=== PATIENT | male | born 2000 | race Caucasian/White ===

== ENCOUNTER 2022-03-03 11:40 | Emergency (ER) | payer OTHER ==
[~2022-03-03] VITALS: Ht 162.6 cm; Wt 69.9 kg
[2022-03-03 11:51] VITALS: BP 124/54
[2022-03-03] MEDS ORDERED: LIDOCAINE 1% VIAL ONE (11:51)
--- NOTE | 2022-03-03 12:33 | DIREP ---
PROCEDURE:XRAY TIB & FIB 2 VW-RT COMPARISON:None. INDICATIONS:Pain/injury FINDINGS: BONES:Normal. JOINTS:Normal. SOFT TISSUES:Right anterolateral soft tissue wound. No radiopaque foreign body. OTHER:No additional findings. CONCLUSION:Soft tissue wound. No acute bony abnormality. Dictated by: Olamide Funk MD on 03/03/2022 at 12:31 PM
[2022-03-03] MEDS ORDERED: MORPHINE SULFATE IM STA (12:54)
[2022-03-03] MEDS ORDERED: MORPHINE SULFATE ONE (12:55)
--- NOTE | 2022-03-03 14:23 | ER.PDOC ---
General Chief Complaint: Extremities Stated Complaint: LAC/RIGHT LEG Time seen by MD: 12:00 Source: patient Exam Limitations: no limitations History of Present Illness Initial Comments Laceration of left leg with a chain saw. Onset: just prior to arrival Where: work Context: laceration Severity: moderate Allergies: Coded Allergies: No Known Allergies (Unverified , 03/03/22) Past Medical History Medical History: no pertinent history Surgical History: no surgical history Family History Significant Family History: no pertinent family hx Social History Smoking: non-smoker Alcohol Use: none Drug Use: none Review of Systems Constitutional: no symptoms reported EENTM: no symptoms reported Respiratory: no symptoms reported Cardiovascular: no symptoms reported Gastrointestinal: no symptoms reported Musculoskeletal: see HPI All Other Systems: Reviewed and Negative Physical Exam General Appearance: Alert, No Apparent Distress Foot: nml inspection, non-tender, nml color/temp, skin intact Ankle: nml inspection, non-tender, nml ROM, no joint swelling, skin intact Knee: nml inspection, non-tender, nml ROM, no joint swelling Thigh/Hip: nml inspection 1 - Lac Gait: normal Neuro/Vasc/Tendon: sensation nml, motor nml, no vascular compromise, tendon function nml Skin: warm/dry Head/ENT: nml inspection, pharynx nml Neck/Back: nml inspection, non-tender Abdomen: non-tender, pelvis stable ED LACERATION WOUND REPAIR # of Wounds/Lacerations Presen: 1 Wound Location & Length (Requi: Left leg Wound Length (cm): 10 Wound cleaned: betadine Anesthesia type: local Anesthesia: 1% Lidocaine Volume Anesthetic (ccs): 10 Wound's Depth, Shape: irregular Irrigated w/ Saline (ccs): 50 Wound Repaired With: sutures Suture Size/Type: 4:0, prolene Suture Style: interupted Number of Sutures: 17 Sterile Dressing Applied?: Yes Results/Orders Results/Orders Orders - JOSE MARTIN CORMIER MD Lidocaine Hcl (Lidocaine 1% Vial) (03/03/22 11:51) Xr Tib/Fib Rt (03/03/22 12:04) Morphine Sulfate (Morphine Sulfate) (03/03/22 12:54) Morphine Sulfate (Morphine Sulfate) (03/03/22 12:55) Vital Signs Date Time Temp Pulse Resp B/P (MAP) Pulse Ox O2 Delivery O2 Flow Rate FiO2 03/03/22 11:59 98.7 89 26 99 Room Air* 0 21 03/03/22 11:51 98.7 89 26 99 Room Air* 0 21 03/03/22 11:51 98.7 89 26 99 03/03/22 11:51 98.7 89 26 Administered Medications Medications (Trade) Dose Ordered Sig/Audie Route PRN Reason Start Time Stop Time Status Last Admin Dose Admin Morphine Sulfate (Morphine Sulfate) 4 mg STAT STAT IM 03/03/22 12:54 03/03/22 12:56 DC 03/03/22 12:58 4 MG Progress Progress X-rays of left leg shows no acute bony abnormality. Patient told me that he had he had a tetanus shot less than a year ago. ER DEPART Departure Time of Disposition: 14:21 Disposition: 01 HOME / SELF CARE / HOMELESS Impression: Primary Impression: Laceration of leg, left Additional Impression: Leg injury Condition: Improved Referrals: PCP,UNKNOWN (PCP) PRIMARY CARE PROVIDER Additional Instructions: Keflex Ibuprofen Apply Neosporin daily Remove sutures in 10 days at your PCP or ED Return to ED sooner if any concerns Duration or Time Spent with Pa: 20 min Problem Qualifiers Primary Impression: Laceration of leg, left Encounter type: initial encounter Qualified Codes: S81.812A - Laceration without foreign body, left lower leg, initial encounter Additional Impression: Leg injury Encounter type: initial encounter Laterality: left Qualified Codes: S89.92XA - Unspecified injury of left lower leg, initial encounter JOSE MARTIN CORMIER MD Mar 03, 2022 14:23
[2022-03-03 14:26] VITALS: BP 138/62
== END 2022-03-03 14:32 | disposition home or self-care (01) ==
LOC: ER 11:40
DX: S81.812A Laceration without foreign body, left lower leg, initial encounter (principal); X58.XXXA Exposure to other specified factors, initial encounter; Y93.89 Activity, other specified; Y92.89 Other specified places as the place of occurrence of the external cause; Y99.0 Civilian activity done for income or pay
CPT/HCPCS: 12004; 73590; 96372; 99283; J2001